=== PATIENT | male | born 1940 | race Caucasian/White ===

== ENCOUNTER → 2017-09-13 09:08 | Outpatient (CLI) | payer MEDICARE, SELFPAY ==
[2017-09-13 10:18] LABS: Alanine Aminotransferase 24 U/L (12-78); Albumin Level 4.4 gm/dL (3.4-5.0); Albumin/Globulin Ratio 1.6 (1.1-1.8); Alkaline Phosphatase 68 U/L (46-116); Anion Gap 15.3 mEq/L (5-15); Aspartate Amino Transferase 17 U/L (15-37); Bilirubin,Total 0.4 mg/dL (0.2-1.0); Blood Urea Nitrogen 27 mg/dL (7-18); Calcium 9.4 mg/dL (8.5-10.1); Carbon Dioxide 24 mmol/L (21.0-32.0); Chloride 103 mmol/L (98-107); Chol/HDL Ratio 4.8 (1-3.5); Cholesterol 184 mg/dL (140-200); Creatinine,Serum 1.41 mg/dL (0.70-1.30); Estimated Glomerular Filt Rate 48 ml/min (>60); GFR (African American) 59 ML/MIN (>60); Globulin 2.8 gm/dl (1.3-3.2); Glucose 143 mg/dL (74-106); HDL Cholesterol 38 mg/dL (27-67); LDL Cholesterol 96 mg/dL (0-130); Potassium 5.3 mmoL/L (3.5-5.1); Sodium 137 mmol/L (136-145); Total Protein,Serum 7.2 gm/dL (6.4-8.2); Triglycerides 248 mg/dL (30-200); VLDL Cholesterol 50 mg/dL (0-40)
== END ==
PROVIDERS: PCP Family Medicine; Visit Provider Family Medicine
DX: E11.9 Type 2 diabetes mellitus without complications (principal); I10 Essential (primary) hypertension; E78.00 Pure hypercholesterolemia, unspecified
CPT/HCPCS: 36415; 80053; 80061; 83036

== ENCOUNTER → 2018-03-08 08:12 | Outpatient (CLI) | payer MEDICARE, SELFPAY ==
[2018-03-08 08:48] LABS: Basophils % 0.5 % (0.1-2.0); Eosinophils # 0.5 K/mm3 (0.0-0.4); Eosinophils % 7.5 % (0.1-12.0); Hematocrit 42.9 % (42.0-52.0); Hemoglobin 13.5 g/dL (14.1-18.0); Lymphocytes # 2.5 K/mm3 (0.7-4.5); Lymphocytes % 40.4 K/mm3 (10-50); Mean Corpuscular HGB Conc 31.5 g/dL (31.8-35.4); Mean Corpuscular Hemoglobin 29.8 pg (27.0-31.2); Mean Corpuscular Volume 94.6 fl (80-94); Mean Platelet Volume 7.9 fl (7.4-10.4); Monocytes # 0.6 K/mm3 (0.1-1.0); Monocytes % 8.8 % (1.7-9.3); Neutrophils # 2.7 K/mm3 (1.8-7.8); Neutrophils % 42.8 % (37.0-80.0); Platelet Count 201 K/mm3 (142-424); Red Blood Count 4.54 M/mm3 (4.60-6.20); Red Cell Distribution Width 13.4 % (11.5-17.5); White Blood Count 6.2 K/mm3 (4.8-10.8)
[2018-03-08 08:56] LABS: Creatinine,Urine Random 99 mg/dL (20-320)
[2018-03-08 09:09] LABS: Hemoglobin A1C 7.1 % (0.0-7.0)
[2018-03-08 10:03] LABS: Alanine Aminotransferase 24 U/L (12-78); Albumin/Globulin Ratio 1.4 (1.1-1.8); Alkaline Phosphatase 74 U/L (46-116); Anion Gap 14.5 mEq/L (5-15); Aspartate Amino Transferase 16 U/L (15-37); Bilirubin,Total 0.4 mg/dL (0.2-1.0); Blood Urea Nitrogen 32 mg/dL (7-18); Carbon Dioxide 24 mmol/L (21.0-32.0); Chloride 106 mmol/L (98-107); Chol/HDL Ratio 4.3 (1-3.5); Cholesterol 145 mg/dL (140-200); Creatinine,Serum 1.52 mg/dL (0.70-1.30); Estimated Glomerular Filt Rate 44 ml/min (>60); GFR (African American) 54 ML/MIN (>60); Globulin 2.9 gm/dl (1.3-3.2); Glucose 173 mg/dL (74-106); HDL Cholesterol 34 mg/dL (27-67); LDL Cholesterol 83 mg/dL (0-130); Potassium 5.5 mmoL/L (3.5-5.1); Prostate Specific Ag Screen 1.4 ng/mL (0.0-4.0); Sodium 139 mmol/L (136-145); Total Protein,Serum 6.9 gm/dL (6.4-8.2); Triglycerides 138 mg/dL (30-200); VLDL Cholesterol 28 mg/dL (0-40)
[2018-03-09 18:30] LABS: Microalbumin, Urine <3.0 ug/mL (Not Estab.)
== END ==
PROVIDERS: Visit Provider Family Medicine
DX: Z12.5 Encounter for screening for malignant neoplasm of prostate (principal); I10 Essential (primary) hypertension; E11.9 Type 2 diabetes mellitus without complications; E78.5 Hyperlipidemia, unspecified
CPT/HCPCS: 36415; 80053; 80061; 82043; 82570; 83036; 85025; G0103

== ENCOUNTER → 2018-09-12 08:49 | Outpatient (CLI) | payer MEDICARE, SELFPAY ==
[2018-09-12 09:41] LABS: Hemoglobin A1C 8.5 % (0.0-7.0)
[2018-09-12 09:56] LABS: Alanine Aminotransferase 32 U/L (12-78); Albumin Level 4.2 gm/dL (3.4-5.0); Albumin/Globulin Ratio 1.4 (1.1-1.8); Alkaline Phosphatase 72 U/L (46-116); Anion Gap 16.3 mEq/L (5-15); Aspartate Amino Transferase 22 U/L (15-37); Bilirubin,Total 0.4 mg/dL (0.2-1.0); Blood Urea Nitrogen 27 mg/dL (7-18); Calcium 9.6 mg/dL (8.5-10.1); Carbon Dioxide 23 mmol/L (21.0-32.0); Chloride 104 mmol/L (98-107); Chol/HDL Ratio 5.5 (1-3.5); Cholesterol 191 mg/dL (140-200); Creatinine,Serum 1.32 mg/dL (0.70-1.30); Estimated Glomerular Filt Rate 52 ml/min (>60); GFR (African American) 63 ML/MIN (>60); Glucose 188 mg/dL (74-106); HDL Cholesterol 35 mg/dL (27-67); LDL Cholesterol 103 mg/dL (0-130); Potassium 5.3 mmoL/L (3.5-5.1); Sodium 138 mmol/L (136-145); Total Protein,Serum 7.2 gm/dL (6.4-8.2); Triglycerides 266 mg/dL (30-200); VLDL Cholesterol 53 mg/dL (0-40)
== END ==
PROVIDERS: Visit Provider Family Medicine
DX: E78.5 Hyperlipidemia, unspecified (principal); E11.9 Type 2 diabetes mellitus without complications; I10 Essential (primary) hypertension
CPT/HCPCS: 36415; 80053; 80061; 83036

== ENCOUNTER → 2019-03-06 09:03 | Outpatient (CLI) | payer MEDICARE, SELFPAY ==
[2019-03-06 10:06] LABS: Hemoglobin A1C 7.7 % (0.0-7.0)
[2019-03-06 11:45] LABS: Alanine Aminotransferase 25 U/L (12-78); Albumin/Globulin Ratio 1.4 (1.1-1.8); Alkaline Phosphatase 73 U/L (46-116); Anion Gap 18.7 mEq/L (5-15); Aspartate Amino Transferase 20 U/L (15-37); Bilirubin,Total 0.3 mg/dL (0.2-1.0); Blood Urea Nitrogen 34 mg/dL (7-18); Calcium 9.7 mg/dL (8.5-10.1); Carbon Dioxide 20 mmol/L (21.0-32.0); Chloride 108 mmol/L (98-107); Chol/HDL Ratio 4.9 (1-3.5); Cholesterol 167 mg/dL (140-200); Creatinine,Serum 1.65 mg/dL (0.70-1.30); Estimated Glomerular Filt Rate 40 ml/min (>60); GFR (African American) 49 ML/MIN (>60); Globulin 2.9 gm/dl (1.3-3.2); Glucose 73 mg/dL (74-106); HDL Cholesterol 34 mg/dL (27-67); LDL Cholesterol 103 mg/dL (0-130); Potassium 5.7 mmoL/L (3.5-5.1); Sodium 141 mmol/L (136-145); Total Protein,Serum 6.9 gm/dL (6.4-8.2); Triglycerides 152 mg/dL (30-200); VLDL Cholesterol 30 mg/dL (0-40)
== END ==
PROVIDERS: Visit Provider Family Medicine
DX: E11.9 Type 2 diabetes mellitus without complications (principal); E78.5 Hyperlipidemia, unspecified; I10 Essential (primary) hypertension
CPT/HCPCS: 36415; 80053; 80061; 83036

== ENCOUNTER → 2019-08-29 08:58 | Outpatient (CLI) | payer MEDICARE, SELFPAY ==
[2019-08-29 09:36] LABS: Hemoglobin A1C 7.8 % (0.0-7.0)
[2019-08-29 09:57] LABS: Alanine Aminotransferase 28 U/L (12-78); Albumin/Globulin Ratio 1.3 (1.1-1.8); Alkaline Phosphatase 71 U/L (46-116); Aspartate Amino Transferase 19 U/L (15-37); Bilirubin,Total 0.4 mg/dL (0.2-1.0); Blood Urea Nitrogen 24 mg/dL (7-18); Calcium 9.3 mg/dL (8.5-10.1); Carbon Dioxide 26 mmol/L (21.0-32.0); Chloride 103 mmol/L (98-107); Chol/HDL Ratio 4.3 (1-3.5); Cholesterol 177 mg/dL (140-200); Creatinine,Serum 1.16 mg/dL (0.70-1.30); Estimated Glomerular Filt Rate 60 ml/min (>60); GFR (African American) 73 ML/MIN (>60); Glucose 144 mg/dL (74-106); HDL Cholesterol 41 mg/dL (27-67); LDL Cholesterol 98 mg/dL (0-130); Sodium 139 mmol/L (136-145); Triglycerides 190 mg/dL (30-200); VLDL Cholesterol 38 mg/dL (0-40)
[2019-09-01 05:08] LABS: Microalbumin, Urine 5.2 ug/mL (Not Estab.)
== END ==
PROVIDERS: Visit Provider Family Medicine
DX: E78.5 Hyperlipidemia, unspecified (principal); E11.9 Type 2 diabetes mellitus without complications; I10 Essential (primary) hypertension
CPT/HCPCS: 36415; 80053; 80061; 82043; 82570; 83036

== ENCOUNTER → 2020-02-26 08:40 | Outpatient (CLI) | payer MEDICARE, SELFPAY ==
[2020-02-26 10:01] LABS: Alanine Aminotransferase 16 U/L (12-78); Albumin Level 4.7 g/dl (3.5-5.0); Albumin/Globulin Ratio 1.9 (1.1-1.8); Alkaline Phosphatase 100 U/L (38-126); Aspartate Amino Transferase 28 U/L (17-59); Bilirubin,Total 0.5 mg/dl (0.2-1.3); Blood Urea Nitrogen 23 mg/dl (9-20); Calcium 10.1 mg/dl (8.4-10.2); Carbon Dioxide 25 mmol/L (22.0-30.0); Chloride 101 mmol/L (98-107); Chol/HDL Ratio 3.3 (1-3.5); Cholesterol 153 mg/dl (140-200); Estimated Glomerular Filt Rate 64 ml/min (>60); GFR (African American) 78 ML/MIN (>60); Globulin 2.5 g/dL (1.3-3.2); Glucose 157 mg/dl (74-100); HDL Cholesterol 46 mg/dl (40-60); Sodium 136 mmol/L (136-145); Total Protein,Serum 7.2 g/dl (6.3-8.2); Triglycerides 158 mg/dl (30-150); VLDL Cholesterol 32 mg/dL (0-40)
[2020-02-26 10:11] LABS: Direct LDL Cholesterol 91.42 mg/dL (100-129)
[2020-02-26 10:39] LABS: Creatinine,Urine Random 59 mg/dL (Not Estab.)
[2020-02-26 10:42] LABS: Microalbumin/Creatinine Ratio 22.2
[2020-02-26 10:53] LABS: Hemoglobin A1C 7.7 % (4.0-6.0)
== END ==
PROVIDERS: Visit Provider Family Medicine
DX: E11.9 Type 2 diabetes mellitus without complications (principal); E78.5 Hyperlipidemia, unspecified; I10 Essential (primary) hypertension
CPT/HCPCS: 36415; 80053; 80061; 82043; 82570; 83036

== ENCOUNTER → 2020-09-08 09:47 | Outpatient (CLI) | payer MEDICARE, SELFPAY ==
[2020-09-08 12:51] LABS: Alanine Aminotransferase 28 U/L (12-78); Albumin Level 4.7 g/dl (3.5-5.0); Albumin/Globulin Ratio 1.7 (1.1-1.8); Alkaline Phosphatase 95 U/L (38-126); Anion Gap 16.3 mEq/L (5-15); Aspartate Amino Transferase 29 U/L (17-59); Bilirubin,Total 0.6 mg/dl (0.2-1.3); Blood Urea Nitrogen 25 mg/dl (9-20); Calcium 10.3 mg/dl (8.4-10.2); Carbon Dioxide 25 mmol/L (22.0-30.0); Chloride 100 mmol/L (98-107); Chol/HDL Ratio 4.7 (1-3.5); Cholesterol 177 mg/dl (140-200); Estimated Glomerular Filt Rate 64 ml/min (>60); GFR (African American) 78 ML/MIN (>60); Globulin 2.7 g/dL (1.3-3.2); Glucose 179 mg/dl (74-100); HDL Cholesterol 38 mg/dl (40-60); Potassium 5.3 mmoL/L (3.5-5.1); Sodium 136 mmol/L (136-145); Total Protein,Serum 7.4 g/dl (6.3-8.2); Triglycerides 196 mg/dl (30-150); VLDL Cholesterol 39 mg/dL (0-40)
[2020-09-08 13:39] LABS: Hemoglobin A1C 7.6 % (4.0-6.0)
== END ==
PROVIDERS: Visit Provider Family Medicine
DX: E11.9 Type 2 diabetes mellitus without complications (principal); E78.5 Hyperlipidemia, unspecified
CPT/HCPCS: 36415; 80053; 80061; 83036

== ENCOUNTER → 2021-01-20 14:12 | Outpatient (CLI) | payer MEDICARE, SELFPAY ==
--- NOTE | 2021-01-20 14:17 | XR_ITS ---
PROCEDURE: XR CHEST 2V CLINICAL HISTORY: DYPSNEA,FATIGUE COMPARISON: No exams were available for comparison FINDINGS: The cardiomediastinal silhouette and pulmonary vascularity are within normal limits. The lungs are clear without infiltrates, suspicious nodules, or pleural effusions. Vascular calcification is noted. Multilevel degenerative changes of the visualized thoracic spine and bilateral shoulder joint osteoarthritis. IMPRESSION: No acute findings. Dictated by: Marti Chin 01/20/2021 16:01 Marti Chin in [place] 01/20/2021 16:01
[2021-01-20 15:00] LABS: Basophils % 0.5 % (0.1-2.0); Eosinophils # 0.3 K/mm3 (0.0-0.4); Eosinophils % 3.2 % (0.1-12.0); Hemoglobin 13.6 g/dL (14.1-18.0); Lymphocytes % 36.3 % (10-50); Mean Corpuscular HGB Conc 32.5 g/dL (31.8-35.4); Mean Corpuscular Hemoglobin 31.1 pg (27.0-31.2); Mean Corpuscular Volume 95.7 fl (80-94); Mean Platelet Volume 7.9 fl (7.4-10.4); Monocytes # 0.5 K/mm3 (0.1-1.0); Monocytes % 6.3 % (1.7-9.3); Neutrophils # 4.4 K/mm3 (1.8-7.8); Neutrophils % 53.7 % (37.0-80.0); Platelet Count 209 K/mm3 (142-424); Red Blood Count 4.39 M/mm3 (4.60-6.20); White Blood Count 8.2 K/mm3 (4.8-10.8)
[2021-01-20 15:20] LABS: Iron 101 ug/dL (49-181)
[2021-01-20 15:37] LABS: 25-OH Vitamin D, Total 52.3 ng/mL (30-100)
[2021-01-20 15:53] LABS: Thyroid Stimulating Hormone 0.87 uIU/mL (0.465-4.68)
[2021-01-20 16:28] LABS: Vitamin B12 230 pg/mL (239-931)
== END ==
PROVIDERS: PCP Family Medicine; Visit Provider Family Medicine
DX: R06.00 Dyspnea, unspecified (principal); R53.83 Other fatigue; E53.8 Deficiency of other specified B group vitamins
CPT/HCPCS: 36415; 71046; 82306; 82607; 82746; 83540; 84443; 85025

== ENCOUNTER → 2021-03-10 08:41 | Outpatient (CLI) | payer MEDICARE, SELFPAY ==
[2021-03-10 09:12] LABS: Chloride 104 mmol/L (98-107); Potassium 5.5 mmoL/L (3.5-5.1); Sodium 138 mmol/L (136-145)
[2021-03-10 09:14] LABS: Blood Urea Nitrogen 27 mg/dl (9-20); Estimated Glomerular Filt Rate 58 ml/min (>60); GFR (African American) 70 ML/MIN (>60)
[2021-03-10 09:15] LABS: Alanine Aminotransferase 20 U/L (12-78); Albumin Level 4.7 g/dl (3.5-5.0); Albumin/Globulin Ratio 1.7 (1.1-1.8); Alkaline Phosphatase 94 U/L (38-126); Anion Gap 16.5 mEq/L (5-15); Aspartate Amino Transferase 32 U/L (17-59); Bilirubin,Total 0.5 mg/dl (0.2-1.3); Calcium 9.8 mg/dl (8.4-10.2); Carbon Dioxide 23 mmol/L (22.0-30.0); Chol/HDL Ratio 4.8 (1-3.5); Cholesterol 159 mg/dl (140-200); Globulin 2.7 g/dL (1.3-3.2); Glucose 206 mg/dl (74-100); HDL Cholesterol 33 mg/dl (40-60); Total Protein,Serum 7.4 g/dl (6.3-8.2); Triglycerides 206 mg/dl (30-150); VLDL Cholesterol 41 mg/dL (0-40)
== END ==
PROVIDERS: Visit Provider Family Medicine
DX: I10 Essential (primary) hypertension (principal); E11.9 Type 2 diabetes mellitus without complications; E78.5 Hyperlipidemia, unspecified
CPT/HCPCS: 36415; 80053; 80061; 83036

== ENCOUNTER → 2021-07-11 15:18 | Outpatient (POV) | payer MEDICARE, SELFPAY | PROVIDERS: Visit Provider Dermatology | DX: Z00.00 Encounter for general adult medical examination without abnormal findings (principal) ==

== ENCOUNTER 2021-08-23 16:12 | Observation (INO) | payer MEDICARE, SELFPAY ==
[2021-08-23 16:33] VITALS: BP 135/68; PULSE 101; RESP 14; TEMP 36.5; O2SAT 98; BMI 27.1
--- NOTE | 2021-08-23 16:52 | HMH.HP ---
*Admission Date: 08/23/21 *Chief complaint: left ear pain and face swelling *History of present illness: Mr. Alegria is an 81-year-old male who has had chronic otitis externa of the left ear. He has now seen Dr. Dimas on two different occasions, one on 08/01 and also today. He was following up and had stopped his Ciprodex drops approximately 1 week ago. He felt like his ear was getting worse and he had noticed some swelling on the left side of his face starting this morning. On exam he had auricular tenderness on the left and severe swelling of the left ear canal with debris. His TM appeared normal once the debris was cleaned. A culture was obtained, but Dr. 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 A wick was placed and he wanted the patient admitted to the hospital and started on Ciprodex otic drops along with cefepime pending cultures. He felt steroids would help, but this would need to balance with his diabetes management. He also wanted an MRI of the temporal bone with and without contrast as well as a CT of the temporal bone without contrast. [facility] History I have reviewed the patient's past medical history: Yes Medical History: Reports:: Atherosclerotic Heart Disease, Diabetes Mellitus Type 2, Hyperlipidemia, Hypertension, Kidney Stones, Renal Insufficiency *Have you ever received a pneumonia vaccine?: No *Have you received a flu vaccine this season?: Yes Other Medical History: Reports: Arthritis Other Surgeries: Yes: Coronary Stent, Other Amputation: No Fractures: No - *Social History Smoking Status: Never smoker Alcohol Intake: never Substance Use Type: denies use *Occupational Status:: retired Household Members: spouse *Travel in the last 8 weeks: None Family Hx:: Coronary Artery Disease, Diabetes, Hypertension, Kidney Disease Review of Systems - Constitutional Denies chills, Denies fever(s), Denies weakness - Eyes Denies blurry vision, Denies double vision - ENT Reports ear pain (left), Reports facial pain (left side), Denies nasal congestion, Denies sore throat - *Cardiovascular Denies chest pain, Denies shortness of breath - *Respiratory Denies cough, Denies shortness of breath - *Gastrointestinal Denies abdominal pain, Denies loose stools, Denies nausea, Denies vomiting - *Genitourinary Denies difficulty urinating, Denies painful urination - *Musculoskeletal Reports joint pain (left knee) - *Neurologic Reports localized weakness (left side of face), Reports headache(s), Denies dizziness Meds Home Medications Medication Instructions Recorded Confirmed Type aspirin 81 mg capsule 81 mg PO DAILY 08/01/21 08/23/21 History canagliflozin 300 mg tablet 300 mg PO DAILY 08/01/21 08/23/21 History celecoxib 200 mg capsule 200 mg PO DAILY 08/01/21 08/23/21 History gemfibrozil 600 mg tablet 600 mg PO DAILY 08/01/21 08/23/21 History glimepiride 4 mg tablet 4 mg PO DAILY 08/01/21 08/23/21 History glucosam 750 mg-chondroi 100 tab PO 08/01/21 08/23/21 History mg-hyalur 1.65 mg-CF borate 108 mg tablet glucosamine-chondroitin 250 mg-200 2 tab PO QPC 08/01/21 08/23/21 History mg tablet krill cap PO 08/01/21 08/23/21 History gkc-ih2-wzj-eob-sh1-iic-astax 1,500 mg-165 mg-67.5 mg capsule lisinopril 20 mg tablet 20 mg PO DAILY 08/01/21 08/23/21 History pravastatin 40 mg tablet 40 mg PO DAILY 08/01/21 08/23/21 History sitagliptin 50 mg-metformin 1,000 1 tab PO BID 08/01/21 08/23/21 History mg tablet Allergies Allergy/AdvReac Type Severity Reaction Status Date / Time dapagliflozin [From [facility]] Allergy Mild Dizziness Verified 08/23/21 14:38 From Penicillin V Potassium Allergy Unknown Uncoded 08/01/21 11:34 Penicillin Allergy Unknown Uncoded 08/01/21 11:34 Exam Vital signs and Labs for Last 24 Hours: Temp Pulse Resp BP Pulse Ox 97.7 F 101 H 14 135/68 98 08/23/21 16:33 08/23/21 16:33 08/23/21 16:33 08/23/21 16:3
[2021-08-23 17:38] LABS: Coronavirus 19, PCR Not Detected (NotDetected); Influenza A, PCR Not Detected (NotDetected); Influenza B, PCR Not Detected (NotDetected)
[2021-08-23 18:05] LABS: Basophils # 0.1 K/mm3 (0-0.2); Basophils % 0.5 % (0.1-2.0); Eosinophils # 0.2 K/mm3 (0.0-0.4); Eosinophils % 2.1 % (0.1-12.0); Hematocrit 46.6 % (42.0-52.0); Hemoglobin 15.8 g/dL (14.1-18.0); Lymphocytes # 2.6 K/mm3 (0.7-4.5); Lymphocytes % 23.7 % (10-50); Mean Corpuscular HGB Conc 33.8 g/dL (31.8-35.4); Mean Corpuscular Hemoglobin 30.9 pg (27.0-31.2); Mean Corpuscular Volume 91.3 fl (80-94); Mean Platelet Volume 7.6 fl (7.4-10.4); Monocytes # 0.6 K/mm3 (0.1-1.0); Monocytes % 5.9 % (1.7-9.3); Neutrophils # 7.3 K/mm3 (1.8-7.8); Neutrophils % 67.8 % (37.0-80.0); Platelet Count 344 K/mm3 (142-424); Red Cell Distribution Width 13.1 % (11.5-17.5); White Blood Count 10.8 K/mm3 (4.8-10.8)
[2021-08-23 18:32] LABS: Chloride 99 mmol/L (98-107); Potassium 4.6 mmoL/L (3.5-5.1); Sodium 140 mmol/L (136-145)
[2021-08-23 18:34] LABS: Alanine Aminotransferase 16 U/L (12-78); Alkaline Phosphatase 136 U/L (38-126); Aspartate Amino Transferase 23 U/L (17-59); Bilirubin,Total 0.5 mg/dl (0.2-1.3); Blood Urea Nitrogen 19 mg/dl (9-20); Creatinine Clearance Estimated 60 mL/min (50-200); Estimated Glomerular Filt Rate 64 ml/min (>60); GFR (African American) 77 ML/MIN (>60)
[2021-08-23 18:35] LABS: Albumin Level 4.8 g/dl (3.5-5.0); Albumin/Globulin Ratio 1.4 (1.1-1.8); Anion Gap 18.6 mEq/L (5-15); Calcium 10.6 mg/dl (8.4-10.2); Carbon Dioxide 27 mmol/L (22.0-30.0); Globulin 3.5 g/dL (1.3-3.2); Glucose 276 mg/dl (74-100); Total Protein,Serum 8.3 g/dl (6.3-8.2)
[2021-08-23 19:50] VITALS: BP 111/63; PULSE 93; RESP 16; TEMP 36.7; O2SAT 99
[2021-08-23 20:00] VITALS: O2SAT 99
[2021-08-23 21:24] LABS: POC Glucose,Bedside 341 (70-110)
--- NOTE | 2021-08-23 22:22 | P.CONPHA_ITS ---
[facility] Pharmacy VTE Monitoring - Patient Demographics Admission date: 08/23/21 Report Date: 08/23/21 Time: 22:22 Allergies/Adverse Reactions: Patient Allergies dapagliflozin [From Farxiga] Allergy (Mild, Verified 08/23/21 14:38) Dizziness From Penicillin V Potassium Allergy (Unknown, Uncoded 08/01/21 11:34) Penicillin Allergy (Unknown, Uncoded 08/01/21 11:34) Height: 1.75 m Weight: 83.206 kg Patient Problems: Current Active Problems Malignant otitis externa of left ear (Acute) Facial nerve palsy (Acute) Type 2 diabetes mellitus (Chronic) Hypertension (Chronic) Hyperlipidemia (Chronic) ASCVD (arteriosclerotic cardiovascular disease) (Chronic) Chronic renal insufficiency (Chronic) - VTE Risk Labs: VTE Related Lab Results Hgb 15.8 g/dL (14.1-18.0) 08/23/21 17:27 Hct 46.6 % (42.0-52.0) 08/23/21 17:27 Plt Count 344 K/mm3 (142-424) 08/23/21 17:27 BUN 19 mg/dl (9-20) 08/23/21 17:27 Creatinine 1.10 mg/dl (0.66-1.25) 08/23/21 17:27 Estimated Creat Clear 60 mL/min (50-200) 08/23/21 17:27 Was VTE Risk Assessment Performed: Yes VTE Score: 2 Clinical Trial Participant: No - Prophylaxis VTE Prophylaxis Ordered?: Yes Types of VTE Prophylaxis: TEDS Knee High
--- NOTE | 2021-08-23 22:32 | HMH.PHAINT ---
home medication list verified using list from [facility]
[2021-08-23 23:30] LABS: Coronavirus 19 IgG Antibody Positive (Negative); Coronavirus 19 IgM Antibody Negative (Negative)
[2021-08-24 04:00] VITALS: BP 122/70; PULSE 99; RESP 17; TEMP 36.7; O2SAT 96
[2021-08-24 05:51] VITALS: BMI 26.1
[2021-08-24 06:10] LABS: POC Glucose,Bedside 152 (70-110)
[2021-08-24 07:47] VITALS: BP 112/64; PULSE 102; RESP 16; TEMP 36.8; O2SAT 96
[2021-08-24 08:00] VITALS: PULSE 102; RESP 16; O2SAT 96
--- NOTE | 2021-08-24 08:14 | CT_ITS ---
PROCEDURE INFORMATION: Exam: CT Temporal Bones Without Contrast. Exam date and time: 08/24/2021 8:14 AM Age: 81 years old Clinical indication: Other: Left ear pain; Additional info: Malignant external otitis with facial nerve palsy TECHNIQUE: Imaging protocol: Computed tomography images of the temporal bones without contrast. Radiation optimization: All CT scans at this facility use at least one of these dose optimization techniques: automated exposure control; mA and/or kV adjustment per patient size (includes targeted exams where dose is matched to clinical indication); or iterative reconstruction. COMPARISON: CR (PA, SKULL, [employer]) 06/16/2015 8:48 AM FINDINGS: Right inner ear: Normal. Right ossicles and middle ear: Normal. The middle ear ossicles are intact. Right external auditory canal: Normal. Right facial nerve canal: Normal. Right jugular foramen: No jugular dehiscence. Right carotid canal: No aberrant carotid canal. Right mastoid air cells: Normal. No mastoid effusions. Left inner ear: Normal. Left ossicles and middle ear: Normal. The middle ear ossicles are intact. Left external auditory canal: Soft tissue thickening along the left external auditory canal consistent with otitis externa. There is effacement of the meatus. The bony EAC appears intact without erosion. Contiguous tissue density extends to the immediately adjacent mastoid temporal bone where there is loss of cortical bone in keeping with the provided history of malignant otitis externa. This is seen for example on coronal image 48 of series 601, image 44 of series 3; essentially posterior and inferior to the bony EAC. More inferiorly, sclerotic appearance of the mastoid tip which demonstrates cortical irregularity concerning for osteomyelitis, axial image 51 series 3, sagittal image 52 series 602. There is adjacent soft tissue induration. This soft tissue edema is in the region of the extracranial left cranial nerve 7 (following exit from the skull base, just below the level of the stylomastoid foramen). Left facial nerve canal: Normal. Left jugular foramen: No jugular dehiscence. Left carotid canal: No aberrant carotid canal. Left mastoid air cells: There is left mastoid effusion consistent with mastoiditis. Paranasal sinuses: Retention cyst or polyp in the right maxillary sinus. Lymph nodes: Mildly enlarged left periauricular and intraparotid lymph nodes, likely reactive. Soft tissues: Diffuse left periauricular soft tissue swelling. No drainable soft tissue abscess identified. IMPRESSION: 1. Findings considered consistent with the provided history malignant otitis externa. 2. 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 3. Adjacent to the mastoid tip there soft tissue induration in the region of the extracranial left cranial nerve 7. 4. There is left mastoiditis.
--- NOTE | 2021-08-24 08:17 | HMH.ACPN2 ---
<Carina Younger - Last Filed: 08/24/21 08:17> Internal Medicine - PN: Subj *Date: 08/24/21 *Time: 08:17 Interval history: Patient is feeling better today. He feels like his ear pain and facial pain have improved slightly. He was able to sleep last night and did eat breakfast this morning. Exam Vital signs and Labs for Last 24 Hours: Temp Pulse Resp BP Pulse Ox 98.2 F 102 H 16 112/64 96 08/24/21 07:47 08/24/21 07:47 08/24/21 07:47 08/24/21 07:47 08/24/21 07:47 Laboratory Results - last 24 hr 08/23/21 17:27: WBC 10.8, RBC 5.10, Hgb 15.8, Hct 46.6, MCV 91.3, MCH 30.9, MCHC 33.8, RDW 13.1, Plt Count 344, MPV 7.6, Neut % (Auto) 67.8, Lymph % (Auto) 23.7, [place] % (Auto) 5.9, Eos % (Auto) 2.1, Baso % (Auto) 0.5, Neut # (Auto) 7.3, Lymph # (Auto) 2.6, [place] # (Auto) 0.6, Eos # (Auto) 0.2, Baso # (Auto) 0.1 08/23/21 17:27: Sodium 140, Potassium 4.6, Chloride 99, Carbon Dioxide 27, Anion Gap 18.6 H, BUN 19, Creatinine 1.10, Estimated Creat Clear 60, Estimated GFR 64, Est GFR ( Amer) 77, Glucose 276 H, Calcium 10.6 H, Total Bilirubin 0.5, AST 23, ALT 16, Alkaline Phosphatase 136 H, Total Protein 8.3 H, Albumin 4.8, Globulin 3.5 H, Albumin/Globulin Ratio 1.4 08/23/21 17:27: SARS-CoV-2 (PCR) Not detected, Influenza A Untype (PCR) Not detected, Influenza Type B (PCR) Not detected 08/23/21 17:27: SARS-CoV-2 IgG Ab (Rapid) Positive A, SARS-CoV-2 IgM Ab (Rapid) Negative 08/23/21 20:24: POC Glucose 341 H* 08/24/21 04:47: POC Glucose 152 H I & O for Last 24 hours: Intake & Output 08/21/21 08/22/21 08/23/21 08/24/21 11:59 11:59 11:59 11:59 Intake Total 480 / 480 Balance 480 / 480 Weight 176 lb 8 oz - Constitutional no acute distress - *Routine Respiratory Exam Present: CTA bilaterally - *Routine Cardiovascular Exam Present: RRR - *Routine Abdominal Exam Present: soft, normoactive bowel sounds. Absent: tenderness - *Routine Extremities Exam Absent: cyanosis, clubbing, edema - *Routine Skin Exam Present: warm. Absent: rash Comments: Still with some erythema and edema on the left side of the face near the ear, it has improved since yesterday - *Routine Neurological Exam Present: alert, oriented X3 Assessment and Plan (1) Malignant otitis externa of left ear Status: Acute Category: Medical Code(s): H60.22 - Malignant otitis externa, left ear (2) Facial nerve palsy Status: Acute Category: Medical Code(s): G51.0 - Tejada's palsy (3) Type 2 diabetes mellitus Status: Chronic Category: Medical Code(s): E11.9 - Type 2 diabetes mellitus without complications (4) Hypertension Status: Chronic Category: Medical Code(s): I10 - Essential (primary) hypertension (5) Hyperlipidemia Status: Chronic Category: Medical Code(s): E78.5 - Hyperlipidemia, unspecified (6) ASCVD (arteriosclerotic cardiovascular disease) Status: Chronic Category: Medical Code(s): I25.10 - Atherosclerotic heart disease of [place] coronary artery without angina pectoris (7) Chronic renal insufficiency Status: Chronic Category: Medical Code(s): N18.9 - Chronic kidney disease, unspecified - Assessment and plan all Dx Assessment and Plan for all problems:: MRI has been ordered. Will continue IV antibiotics and discuss further care with Dr. Oshea. <Gaurang Oshea - Last Filed: 08/24/21 13:30> Internal Medicine - PN: Subj *Date: 08/24/21 *Time: 13:29 Exam Vital signs and Labs for Last 24 Hours: Temp Pulse Resp BP Pulse Ox 98.2 F 102 H 16 112/64 96 08/24/21 07:47 08/24/21 08:00 08/24/21 08:00 08/24/21 07:47 08/24/21 08:00 Laboratory Results - last 24 hr 08/23/21 17:27: WBC 10.8, RBC 5.10, Hgb 15.8, Hct 46.6, MCV 91.3, MCH 30.9, MCHC 33.8, RDW 13.1, Plt Count 344, MPV 7.6, Neut % (Auto) 67.8, Lymph % (Auto) 23.7, [place] % (Auto) 5.9, Eos % (Auto) 2.1, Baso % (Auto) 0.5, Neut # (Auto) 7.3, Lymph # (Auto) 2.6, [place] # (Auto) 0.6, Eos # (Auto)
--- NOTE | 2021-08-24 10:42 | MR_ITS ---
PROCEDURE INFORMATION: Exam: MR Head Without and With Contrast Exam date and time: 08/24/2021 10:42 AM Age: 81 years old Clinical indication: Pain; Headache; Additional info: Malignant otitis exenda left. Malignant otitis external left temporal bone. 16ml. Lot #: [id number] exp: 03/31. Bun: 19, creat: 1.1 gfr: 64. Prior CT temporal bones 08/24/2021. TECHNIQUE: Imaging protocol: MR of the head without and with intravenous contrast. Contrast material: PROHANCE; Contrast volume: 16 ml; Contrast route: IV; COMPARISON: CT TEMPORAL BONE WITHOUT 08/24/2021 9:10 AM FINDINGS: Brain: No acute infarct or encephalitis identified on the diffusion-weighted imaging. The brain demonstrates generalized volume loss. No evidence of brain parenchymal edema or intracranial mass effect. The T2 weighted imaging demonstrates foci of increased signal intensity in the deep and subcortical white matter as well as clark most likely representing chronic small vessel ischemic change. There is a focal, chronic lacunar infarct in the right juárez radiata. No enhancing intracranial pathology. No evidence of dural enhancement, in particular. Cerebral ventricles: The ventricles are enlarged in keeping with volume loss. Bones/joints: The left mastoid tip appears hypointense consistent with sclerosis. Paranasal sinuses: Retention cyst or polyp in the right maxillary sinus. Mild ethmoid mucosal thickening. Mastoid air cells: Left mastoid effusion consistent with mastoiditis. Peripheral mastoid bony erosion is better appreciated on the prior CT study. Orbital cavity: Unremarkable. Soft tissues: Left periauricular and left EAC soft tissue edema with enhancement is again demonstrated in keeping with otitis externa. No soft tissue fluid collection seen. IMPRESSION: 1. No evidence of meningitis or cerebritis. 2. Findings consistent with left otitis externa and mastoiditis.
[2021-08-24 10:58] VITALS: BMI 26.1
[2021-08-24 11:00] LABS: POC Glucose,Bedside 268 (70-110)
[2021-08-24 16:00] VITALS: BP 108/59; PULSE 85; RESP 16; TEMP 36.8; O2SAT 96
--- NOTE | 2021-08-24 17:01 | PC.NURSE ---
Pt has been pleasant and cooperative this shift. A&O X4. Pt is on room air with sats. >90%. Lungs CTA. Erythema/Edema noted to LT ear. Abdomen is flat, soft, and non-tender. Pt ambulates to/from the bathroom and throughout the room independently. Urine is clear and yellow. No BM thus far today. Appetite is good and pt eats the majority of every meal. FSBS results have been 268 and 331. 20 G peripheral IV in the RT forearm is patent and SL. VSS. Call light within reach. Will continue to monitor.
[2021-08-24 17:09] LABS: POC Glucose,Bedside 331 (70-110)
[2021-08-24 20:00] VITALS: BP 110/62; PULSE 84; RESP 17; TEMP 36.9; O2SAT 94
[2021-08-24 21:53] LABS: POC Glucose,Bedside 194 (70-110)
[2021-08-25 04:00] VITALS: BP 113/65; PULSE 67; RESP 16; TEMP 36.6; O2SAT 95
[2021-08-25 05:21] VITALS: BMI 26.4
[2021-08-25 06:37] LABS: POC Glucose,Bedside 243 (70-110)
[2021-08-25 08:00] VITALS: BP 132/56; PULSE 95; RESP 18; TEMP 36.9; O2SAT 97
--- NOTE | 2021-08-25 08:23 | HMH.ACPN2 ---
<Carina Younger - Last Filed: 08/25/21 08:23> Internal Medicine - PN: Subj *Date: 08/25/21 *Time: 08:23 Interval history: Patient states he feels a little bit better today. He was able to rest all night. He has less facial pain and swelling. He states his ear wick did fall out. Exam Vital signs and Labs for Last 24 Hours: Temp Pulse Resp BP Pulse Ox 97.8 F 67 16 113/65 95 08/25/21 04:00 08/25/21 04:00 08/25/21 04:00 08/25/21 04:00 08/25/21 04:00 Laboratory Results - last 24 hr 08/24/21 10:29: POC Glucose 268 H 08/24/21 16:44: POC Glucose 331 H* 08/24/21 21:11: POC Glucose 194 H 08/25/21 06:05: POC Glucose 243 H I & O for Last 24 hours: Intake & Output 08/22/21 08/23/21 08/24/21 08/25/21 11:59 11:59 11:59 11:59 Intake Total 600 / 600 340 / 340 Balance 600 / 600 340 / 340 Weight 176 lb 7.998 oz 178 lb 4.8 oz - Constitutional no acute distress - *Routine HEENT Exam Head: Present: normocephalic Eye: Present: EOMI, PERRL ENT: Present: mucous membranes moist Comments: Less erythema and edema of the face, patient still has drooping on the left side - *Routine Respiratory Exam Present: CTA bilaterally - *Routine Cardiovascular Exam Present: RRR - *Routine Abdominal Exam Present: soft, normoactive bowel sounds. Absent: tenderness - *Routine Extremities Exam Absent: cyanosis, clubbing, edema - *Routine Skin Exam Present: warm. Absent: rash - *Routine Neurological Exam Present: alert, oriented X3 Assessment and Plan (1) Malignant otitis externa of left ear Status: Acute Category: Medical Code(s): H60.22 - Malignant otitis externa, left ear (2) Facial nerve palsy Status: Acute Category: Medical Code(s): G51.0 - Tejada's palsy (3) Type 2 diabetes mellitus Status: Chronic Category: Medical Code(s): E11.9 - Type 2 diabetes mellitus without complications (4) Hypertension Status: Chronic Category: Medical Code(s): I10 - Essential (primary) hypertension (5) Hyperlipidemia Status: Chronic Category: Medical Code(s): E78.5 - Hyperlipidemia, unspecified (6) ASCVD (arteriosclerotic cardiovascular disease) Status: Chronic Category: Medical Code(s): I25.10 - Atherosclerotic heart disease of [place] coronary artery without angina pectoris (7) Chronic renal insufficiency Status: Chronic Category: Medical Code(s): N18.9 - Chronic kidney disease, unspecified - Assessment and plan all Dx Assessment and Plan for all problems:: Still awaiting ear culture. Will continue antibiotics and steroids. <Gaurang Oshea - Last Filed: 08/25/21 11:05> Internal Medicine - PN: Subj *Date: 08/25/21 *Time: 11:03 Exam Vital signs and Labs for Last 24 Hours: Temp Pulse Resp BP Pulse Ox 98.4 F 95 H 18 132/56 L 97 08/25/21 08:00 08/25/21 08:00 08/25/21 08:00 08/25/21 08:00 08/25/21 08:00 Laboratory Results - last 24 hr 08/24/21 16:44: POC Glucose 331 H* 08/24/21 21:11: POC Glucose 194 H 08/25/21 06:05: POC Glucose 243 H I & O for Last 24 hours: Intake & Output 08/22/21 08/23/21 08/24/21 08/25/21 11:59 11:59 11:59 11:59 Intake Total 600 / 600 820 / 820 Output Total 0 / 0 Balance 600 / 600 820 / 820 Weight 176 lb 7.998 oz 178 lb 4.8 oz Assessment and Plan (1) Malignant otitis externa of left ear Status: Acute Category: Medical Code(s): H60.22 - Malignant otitis externa, left ear (2) Mastoiditis Status: Acute Category: Medical Code(s): H70.90 - Unspecified mastoiditis, unspecified ear (3) Facial nerve palsy Status: Acute Category: Medical Code(s): G51.0 - Tejada's palsy (4) Type 2 diabetes mellitus Status: Chronic Category: Medical Code(s): E11.9 - Type 2 diabetes mellitus without complications (5) Hypertension Status: Chronic Category: Medical Code(s): I10 - Essential (primary) hypertension (6) Hyperlipidemia Status: Chronic Category:
--- NOTE | 2021-08-25 11:18 | SW/DCPLANNER ---
Addendum entered by Latrice Rivera 08/29/21 11:45: This patient is planned to return to [facility] outpatient for PICC care and lab draws on 08/31/21. [facility] Giraldo has stated that she will send their nurse to the home for PICC care and labs draws after 09/05/21. I have called and updated patient: patient agrees with plan. Addendum entered by Latrice Rivera 08/28/21 09:40: Radha w/ [facility] has stated that she is unable to accept to their services due to patient not being homebound. Radha stated that she did teach how to administer IV antibiotics on Saturday morning. I followed up w/ patients this AM and she stated that everything is going well with IV antibiotics at home. I also spoke with Atla from [facility] and she stated that depending on patients insurance plan she may have a nurse that can complete PICC care and lab draws from home rather than patient returning as an outpatient weekly. I will follow up with Alta once information is reviewed. Patient will either be set up w/ Kristal to have PICC care/lab draws at home or return to [facility] for care. Addendum entered by Latrice Rivera 08/25/21 15:18: Alta has stated $213/week for 4-6 is silva for IV medication. Patients family concurs with this plan. Patient will discharge home this evening, medication delivered this evening and [facility] will begin services between 7-8AM tomorrow morning. Patient/ has no further questions at this time. Addendum entered by Latrice Rivera 08/25/21 13:47: Marisel w/ [facility] has stated that services will begin tomorrow morning for first at home teaching of IV antibiotics. I am currently waiting to hear back from [facility] Giraldo. Addendum entered by Latrice Wellman 08/25/21 13:05: Dr Oshea has now recommended that patient discharge on IV antibiotic Q8. I spoke with patients and she is agreeable to discharge home with home health services ([facility]) due to needing antibiotic three times a day. Patient information has been faxed to [facility] Giraldo to confirm out of pocket expense. I will follow up with Alta once patient information/order is reviewed and then fax to [facility] for services to begin day after discharge. Original Note: I spoke with this patient and his regarding plans once medically stable for discharge. 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 I explained different discharge options to patient/: home w/ home health and someone being taught how to administer medication at home vs returning to [facility] outpatient daily for IV antibiotics vs placement. After lengthy discussion with patient/ they have decided to return to [facility] daily for IV antibiotics. I have updated Dr Oshea regarding discharge plans. Discharge date is unknown at this time.
--- NOTE | 2021-08-25 11:35 | XR_ITS ---
PROCEDURE: XR CHEST PORTABLE PICC PLAC CLINICAL HISTORY: Confirm PICC line placement COMPARISON: CR XR CHEST 2V from 01/20/2021 FINDINGS: The cardiomediastinal silhouette and pulmonary vascularity are within normal limits. Left upper extremity PICC line has been inserted. The tip is in the scapular region on the left curling inferiorly at the level of the mid aspect of the clavicle. Lungs are clear. Severe osteoarthritic changes are noted in the shoulders. No acute bony abnormalities. IMPRESSION: Malpositioning of the left upper extremity PICC line. Dictated by: Ramón Riggins MD 08/25/2021 13:58 Ramón Riggins MD in [facility] 08/25/2021 13:58
--- NOTE | 2021-08-25 14:27 | FL_ITS ---
PROCEDURE: FL GUIDED PICC PLACEMENT CLINICAL INDICATION: GUIDED PLACEMENT PICC line assisted placement COMPARISON: No exams were available for comparison FINDINGS: Under fluoroscopic guidance, glidewire was placed through the PICC line and the line was negotiated into the superior vena cava. No immediate complications. The line was then withdrawn and PICC line secured. Fluoroscopy time: 1.25 minutes IMPRESSION: Status post fluoroscopic guided PICC line repositioning with good position. Dictated by: Ramón Riggins MD 08/25/2021 18:14 Ramón Riggins MD in [facility] 08/25/2021 18:14
[2021-08-26 17:21] LABS: POC Glucose,Bedside 213 (70-110)
--- NOTE | 2021-08-27 22:38 | [facility].DCSUM ---
General - General Admission date:: 08/23/21 <Gaurang Oshea - 10/08/21 09:31> 08/23/21 <Carina Younger - 08/27/21 22:43> Discharge date: 08/25/21 <Carina Younger - 08/27/21 22:43> HPI HPI: Mr. Alegria is an 81-year-old male who has had chronic otitis externa of the left ear. He has now seen Dr. Dimas on two different occasions, one on 08/01 and also today. He was following up and had stopped his Ciprodex drops approximately 1 week ago. He felt like his ear was getting worse and he had noticed some swelling on the left side of his face starting this morning. On exam he had auricular tenderness on the left and severe swelling of the left ear canal with debris. His TM appeared normal once the debris was cleaned. A culture was obtained, but Dr. 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 A wick was placed and he wanted the patient admitted to the hospital and started on Ciprodex otic drops along with cefepime pending cultures. He felt steroids would help, but this would need to balance with his diabetes management. He also wanted an MRI of the temporal bone with and without contrast as well as a CT of the temporal bone without contrast. <Carina Younger - 08/27/21 22:43> Hospital Course Hospital Course: The patient was admitted and started on cefepime. He was also started on Ciprodex drops. 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 Adjacent to the mastoid tip there was soft tissue induration in the region of the extracranial left cranial nerve VII as well as left mastoiditis. The patient had a brain MRI which showed no evidence of meningitis or cerebritis but there were findings consistent with left otitis externa and mastoiditis. He did feel better each day on the IV antibiotics. He was able to sleep and had less erythema and edema. He was able to eat. By 08/25/2021 his ear wick had fallen out. He was continued on antibiotics and steroids. Results of the patient's CT and MRI were faxed to Dr. Dimas for further recommendations. The patient had a PICC line placed for continued IV antibiotics. He was agreeable to discharge home with home health services as he was going to need IV antibiotics every 8 hours. He was stable to be discharged home and will follow up with Dr. Oshea and Dr. Dimas. <Carina Younger - 08/27/21 22:43> Objective Vital signs: Temp Pulse Resp BP Pulse Ox 98.4 F 95 H 18 132/56 L 97 08/25/21 08:00 08/25/21 08:00 08/25/21 08:00 08/25/21 08:00 08/25/21 08:00 <DorieGaurang Bean - 10/08/21 09:31> Temp Pulse Resp BP Pulse Ox 98.4 F 95 H 18 132/56 L 97 08/25/21 08:00 08/25/21 08:00 08/25/21 08:00 08/25/21 08:00 08/25/21 08:00 <Carina Younger - 08/27/21 22:43> Narrative: - Constitutional no acute distress - *Routine HEENT Exam Head: Present: normocephalic Eye: Present: EOMI, PERRL ENT: Present: mucous membranes moist Comments: Less erythema and edema of the face, patient still has drooping on the left side - *Routine Respiratory Exam Present: CTA bilaterally - *Routine Cardiovascular Exam Present: RRR - *Routine Abdominal Exam Present: soft, normoactive bowel sounds. Absent: tenderness - *Routine Extremities Exam Absent: cyanosis, clubbing, edema - *Routine Skin Exam Present: warm. Absent: rash - *Routine Neurological Exam Present: alert, oriented X3 <Carina Younger - 08/27/21 22:43> Results Labs on day of discharge: Preliminary micro results at discharge 08/23/21 18:15 Blood Culture - Preliminary Blood NO GROWTH AFTER 48 HOURS 08/23/21 17:27 Blood Culture - Preliminary Blood NO GROWTH AFTER 48 HOURS <Carina Younger - 08/27/21 22:43> DS: Diagnosis - Discharge Diagnosis (1) Malignant otitis externa of left ear Status: Acute (2) Mastoiditis Status: Acute (3) Facial
== END 2021-08-25 18:11 | disposition home health service (06) ==
LOC: 2ND 16:15
PROVIDERS: Nurse Practitioner Family; Admitting Provider Family Medicine; PCP Family Medicine; Visit Provider Family Medicine
DX: H70.002 Acute mastoiditis without complications, left ear (principal); H60.592 Other noninfective acute otitis externa, left ear; G51.0 Bell's palsy; E11.9 Type 2 diabetes mellitus without complications; N18.9 Chronic kidney disease, unspecified; I25.10 Atherosclerotic heart disease of native coronary artery without angina pectoris; I12.9 Hypertensive chronic kidney disease with stage 1 through stage 4 chronic kidney disease, or unspecified chronic kidney disease; Z20.822 Contact with and (suspected) exposure to COVID-19
CPT/HCPCS: 36569; G0378; 70480; 70553; 71045; 77001; 80053; 82962; 85025; 86328; 87040; 87070; A9576; C1751; C1769; C9803; J0692; U0003; U0005

== ENCOUNTER 2021-08-31 09:58 | Outpatient (CLI) | payer MEDICARE, SELFPAY ==
[2021-08-31 10:05] VITALS: BMI 26.1
[2021-08-31 10:41] VITALS: BP 106/58; PULSE 62; RESP 18; TEMP 36.5; O2SAT 98
[2021-08-31 10:46] LABS: Basophils # 0.1 K/mm3 (0-0.2); Basophils % 0.8 % (0.1-2.0); Eosinophils # 0.4 K/mm3 (0.0-0.4); Eosinophils % 3.4 % (0.1-12.0); Hematocrit 42.2 % (42.0-52.0); Hemoglobin 13.3 g/dL (14.1-18.0); Lymphocytes # 2.5 K/mm3 (0.7-4.5); Lymphocytes % 22.9 % (10-50); Mean Corpuscular HGB Conc 31.6 g/dL (31.8-35.4); Mean Corpuscular Volume 97.8 fl (80-94); Monocytes # 0.7 K/mm3 (0.1-1.0); Monocytes % 6.2 % (1.7-9.3); Neutrophils # 7.4 K/mm3 (1.8-7.8); Neutrophils % 66.6 % (37.0-80.0); Platelet Count 310 K/mm3 (142-424); Red Blood Count 4.31 M/mm3 (4.60-6.20); Red Cell Distribution Width 13.3 % (11.5-17.5); White Blood Count 11.1 K/mm3 (4.8-10.8)
[2021-08-31 10:52] LABS: Chloride 100 mmol/L (98-107); Sodium 137 mmol/L (136-145)
[2021-08-31 10:53] LABS: Potassium 4.5 mmoL/L (3.5-5.1)
[2021-08-31 10:56] LABS: Anion Gap 15.5 mEq/L (5-15); Blood Urea Nitrogen 28 mg/dl (9-20); Calcium 9.9 mg/dl (8.4-10.2); Carbon Dioxide 26 mmol/L (22.0-30.0); Creatinine Clearance Estimated 64 mL/min (50-200); Estimated Glomerular Filt Rate 81 ml/min (>60); GFR (African American) 98 ML/MIN (>60); Glucose 168 mg/dl (74-100)
== END 2021-08-31 10:41 | disposition home or self-care (01) ==
LOC: INF 09:59
PROVIDERS: PCP Family Medicine; Visit Provider Family Medicine
DX: H60.22 Malignant otitis externa, left ear (principal)
CPT/HCPCS: 80048; 85025

== ENCOUNTER → 2021-09-05 15:57 | Outpatient (CLI) | payer MEDICARE, SELFPAY | PROVIDERS: Visit Provider Student in an Organized Health Care Education/Training Program | DX: H60.92 Unspecified otitis externa, left ear (principal) | CPT/HCPCS: 87070 ==

== ENCOUNTER → 2021-09-06 09:02 | Outpatient (CLI) | payer MEDICARE, SELFPAY ==
[2021-09-06 09:46] LABS: Hemoglobin A1C 9.1 % (4.0-6.0)
[2021-09-06 11:05] LABS: Alanine Aminotransferase 26 U/L (12-78); Albumin Level 4.2 g/dl (3.5-5.0); Albumin/Globulin Ratio 1.7 (1.1-1.8); Alkaline Phosphatase 104 U/L (38-126); Aspartate Amino Transferase 28 U/L (17-59); Bilirubin,Total 0.3 mg/dl (0.2-1.3); Blood Urea Nitrogen 22 mg/dl (9-20); Carbon Dioxide 26 mmol/L (22.0-30.0); Chloride 102 mmol/L (98-107); Chol/HDL Ratio 4.1 (1-3.5); Cholesterol 184 mg/dl (140-200); Estimated Glomerular Filt Rate 71 ml/min (>60); GFR (African American) 86 ML/MIN (>60); Globulin 2.5 g/dL (1.3-3.2); Glucose 150 mg/dl (74-100); HDL Cholesterol 45 mg/dl (40-60); Sodium 136 mmol/L (136-145); Total Protein,Serum 6.7 g/dl (6.3-8.2); Triglycerides 216 mg/dl (30-150); VLDL Cholesterol 43 mg/dL (0-40)
[2021-09-06 11:16] LABS: Direct LDL Cholesterol 106.52 mg/dL (100-129)
== END ==
PROVIDERS: Visit Provider Family Medicine
DX: E11.9 Type 2 diabetes mellitus without complications (principal); I10 Essential (primary) hypertension; E78.5 Hyperlipidemia, unspecified; Z79.84 Long term (current) use of oral hypoglycemic drugs
CPT/HCPCS: 36415; 80053; 80061; 83036

== ENCOUNTER 2021-09-20 12:51 | Outpatient (CLI) | payer MEDICARE, SELFPAY | END 2021-09-20 13:11 | disposition home or self-care (01) | LOC: INF 12:53 | PROVIDERS: PCP Family Medicine; Visit Provider Family Medicine | DX: Z45.2 Encounter for adjustment and management of vascular access device (principal) | CPT/HCPCS: 96523 ==

== ENCOUNTER 2021-09-27 16:18 | Outpatient (CLI) | payer MEDICARE, SELFPAY | END 2021-09-27 16:38 | disposition home or self-care (01) | LOC: INF 16:20 | PROVIDERS: PCP Family Medicine; Visit Provider Student in an Organized Health Care Education/Training Program | DX: Z45.2 Encounter for adjustment and management of vascular access device (principal) | CPT/HCPCS: 96523 ==

== ENCOUNTER 2021-10-04 10:45 | Outpatient (CLI) | payer MEDICARE, SELFPAY | END 2021-10-04 11:05 | disposition home or self-care (01) | LOC: INF 10:47 | PROVIDERS: PCP Family Medicine | DX: Z45.2 Encounter for adjustment and management of vascular access device (principal) | CPT/HCPCS: 96523 ==

== ENCOUNTER 2021-10-10 10:22 | Outpatient (CLI) | payer MEDICARE, SELFPAY | END 2021-10-10 10:45 | disposition home or self-care (01) | LOC: INF 10:24 | PROVIDERS: PCP Family Medicine; Visit Provider Family Medicine | DX: Z45.2 Encounter for adjustment and management of vascular access device (principal) | CPT/HCPCS: 96523 ==

== ENCOUNTER 2021-10-17 09:47 | Outpatient (CLI) | payer MEDICARE, SELFPAY ==
[2021-10-17 10:01] VITALS: BMI 28.3
[2021-10-17 10:25] LABS: Basophils # 0.1 K/mm3 (0-0.2); Basophils % 1.3 % (0.1-2.0); Eosinophils # 1.8 K/mm3 (0.0-0.4); Eosinophils % 19.4 % (0.1-12.0); Hematocrit 42.4 % (42.0-52.0); Hemoglobin 13.3 g/dL (14.1-18.0); Lymphocytes # 2.3 K/mm3 (0.7-4.5); Lymphocytes % 25.5 % (10-50); Mean Corpuscular HGB Conc 31.3 g/dL (31.8-35.4); Mean Corpuscular Hemoglobin 31.3 pg (27.0-31.2); Mean Corpuscular Volume 99.8 fl (80-94); Mean Platelet Volume 8.4 fl (7.4-10.4); Monocytes # 0.7 K/mm3 (0.1-1.0); Monocytes % 7.7 % (1.7-9.3); Neutrophils # 4.2 K/mm3 (1.8-7.8); Neutrophils % 46.1 % (37.0-80.0); Platelet Count 180 K/mm3 (142-424); Red Blood Count 4.25 M/mm3 (4.60-6.20); Red Cell Distribution Width 14.8 % (11.5-17.5); White Blood Count 9.1 K/mm3 (4.8-10.8)
[2021-10-17 10:35] LABS: Chloride 103 mmol/L (98-107); Potassium 4.4 mmoL/L (3.5-5.1); Sodium 135 mmol/L (136-145)
[2021-10-17 10:37] LABS: Alanine Aminotransferase 27 U/L (12-78); Aspartate Amino Transferase 36 U/L (17-59); Blood Urea Nitrogen 15 mg/dl (9-20); Creatinine Clearance Estimated 69 mL/min (50-200); Estimated Glomerular Filt Rate 81 ml/min (>60); GFR (African American) 98 ML/MIN (>60)
[2021-10-17 10:38] LABS: Albumin/Globulin Ratio 1.7 (1.1-1.8); Alkaline Phosphatase 103 U/L (38-126); Anion Gap 11.4 mEq/L (5-15); Bilirubin,Total 0.6 mg/dl (0.2-1.3); Calcium 9.2 mg/dl (8.4-10.2); Carbon Dioxide 25 mmol/L (22.0-30.0); Globulin 2.3 g/dL (1.3-3.2); Glucose 156 mg/dl (74-100); Total Protein,Serum 6.3 g/dl (6.3-8.2)
[2021-10-17 10:44] LABS: C-Reactive Protein 1.9 mg/L (0-4)
== END 2021-10-17 10:17 | disposition home or self-care (01) ==
LOC: INF 09:50
PROVIDERS: PCP Family Medicine; Visit Provider Family Medicine
DX: H60.22 Malignant otitis externa, left ear (principal)
CPT/HCPCS: 80053; 85025; 86140

== ENCOUNTER 2021-10-25 11:01 | Outpatient (CLI) | payer MEDICARE, SELFPAY ==
[2021-10-25 11:08] VITALS: BMI 28.2
[2021-10-25 11:46] LABS: Basophils # 0.1 K/mm3 (0-0.2); Basophils % 0.7 % (0.1-2.0); Eosinophils # 0.7 K/mm3 (0.0-0.4); Eosinophils % 8.3 % (0.1-12.0); Hematocrit 41.7 % (42.0-52.0); Hemoglobin 13.5 g/dL (14.1-18.0); Lymphocytes # 2.5 K/mm3 (0.7-4.5); Lymphocytes % 30.5 % (10-50); Mean Corpuscular HGB Conc 32.5 g/dL (31.8-35.4); Mean Corpuscular Hemoglobin 30.6 pg (27.0-31.2); Mean Corpuscular Volume 94.2 fl (80-94); Monocytes # 0.7 K/mm3 (0.1-1.0); Monocytes % 8.9 % (1.7-9.3); Neutrophils # 4.3 K/mm3 (1.8-7.8); Neutrophils % 51.6 % (37.0-80.0); Platelet Count 192 K/mm3 (142-424); Red Blood Count 4.43 M/mm3 (4.60-6.20); Red Cell Distribution Width 14.1 % (11.5-17.5); White Blood Count 8.3 K/mm3 (4.8-10.8)
[2021-10-25 11:50] LABS: Chloride 102 mmol/L (98-107); Sodium 133 mmol/L (136-145)
[2021-10-25 11:51] LABS: Potassium 4.5 mmoL/L (3.5-5.1)
[2021-10-25 11:53] LABS: Alanine Aminotransferase 32 U/L (12-78); Albumin Level 4.3 g/dl (3.5-5.0); Albumin/Globulin Ratio 1.7 (1.1-1.8); Alkaline Phosphatase 106 U/L (38-126); Anion Gap 12.5 mEq/L (5-15); Aspartate Amino Transferase 37 U/L (17-59); Bilirubin,Total 0.6 mg/dl (0.2-1.3); Blood Urea Nitrogen 14 mg/dl (9-20); Calcium 9.8 mg/dl (8.4-10.2); Carbon Dioxide 23 mmol/L (22.0-30.0); Creatinine Clearance Estimated 69 mL/min (50-200); Estimated Glomerular Filt Rate 81 ml/min (>60); GFR (African American) 98 ML/MIN (>60); Globulin 2.5 g/dL (1.3-3.2); Glucose 169 mg/dl (74-100); Total Protein,Serum 6.8 g/dl (6.3-8.2)
[2021-10-25 11:59] LABS: C-Reactive Protein 1.6 mg/L (0-4)
== END 2021-10-25 11:15 | disposition home or self-care (01) ==
LOC: INF 11:02
PROVIDERS: PCP Family Medicine; Visit Provider Internal Medicine Infectious Disease
DX: H60.22 Malignant otitis externa, left ear (principal)
CPT/HCPCS: 80053; 85025; 86140

== ENCOUNTER → 2021-11-01 08:09 | Outpatient (CLI) | payer MEDICARE, SELFPAY | PROVIDERS: PCP Family Medicine; Visit Provider Family Medicine | DX: Z45.2 Encounter for adjustment and management of vascular access device (principal) ==

== ENCOUNTER → 2022-03-06 08:33 | Outpatient (CLI) | payer MEDICARE, SELFPAY ==
[2022-03-06 09:27] LABS: Hemoglobin A1C 7.4 % (4.0-6.0)
[2022-03-06 10:04] LABS: Alanine Aminotransferase 18 U/L (12-78); Albumin Level 4.3 g/dl (3.5-5.0); Albumin/Globulin Ratio 1.9 (1.1-1.8); Alkaline Phosphatase 82 U/L (38-126); Anion Gap 13.6 mEq/L (5-15); Aspartate Amino Transferase 24 U/L (17-59); Bilirubin,Total 0.4 mg/dl (0.2-1.3); Blood Urea Nitrogen 21 mg/dl (9-20); Calcium 9.8 mg/dl (8.4-10.2); Carbon Dioxide 23 mmol/L (22.0-30.0); Chloride 104 mmol/L (98-107); Chol/HDL Ratio 4.7 (1-3.5); Cholesterol 149 mg/dl (140-200); Estimated Glomerular Filt Rate 64 ml/min (>60); GFR (African American) 77 ML/MIN (>60); Globulin 2.3 g/dL (1.3-3.2); Glucose 169 mg/dl (74-100); HDL Cholesterol 32 mg/dl (40-60); Potassium 4.6 mmoL/L (3.5-5.1); Sodium 136 mmol/L (136-145); Total Protein,Serum 6.6 g/dl (6.3-8.2); Triglycerides 165 mg/dl (30-150); VLDL Cholesterol 33 mg/dL (0-40)
[2022-03-06 10:15] LABS: Direct LDL Cholesterol 79.64 mg/dL (100-129)
== END ==
PROVIDERS: PCP Family Medicine; Visit Provider Family Medicine
DX: E11.9 Type 2 diabetes mellitus without complications (principal); E78.5 Hyperlipidemia, unspecified; I10 Essential (primary) hypertension; Z79.84 Long term (current) use of oral hypoglycemic drugs
CPT/HCPCS: 36415; 80053; 80061; 83036

== ENCOUNTER → 2022-08-24 08:43 | Outpatient (CLI) | payer MEDICARE, SELFPAY ==
[2022-08-24 09:18] LABS: Hemoglobin A1C 7.9 % (4.0-6.0)
[2022-08-24 09:30] LABS: Alanine Aminotransferase 23 U/L (12-78); Albumin Level 4.7 g/dl (3.5-5.0); Alkaline Phosphatase 124 U/L (38-126); Anion Gap 14.7 mEq/L (5-15); Aspartate Amino Transferase 28 U/L (17-59); Bilirubin,Total 0.5 mg/dl (0.2-1.3); Blood Urea Nitrogen 18 mg/dl (9-20); Calcium 10.3 mg/dl (8.4-10.2); Carbon Dioxide 26 mmol/L (22.0-30.0); Chloride 103 mmol/L (98-107); Chol/HDL Ratio 4.3 (1-3.5); Cholesterol 158 mg/dl (140-200); Estimated Glomerular Filt Rate 64 ml/min (>60); GFR (African American) 77 ML/MIN (>60); Globulin 2.3 g/dL (1.3-3.2); Glucose 159 mg/dl (74-100); HDL Cholesterol 37 mg/dl (40-60); Potassium 4.7 mmoL/L (3.5-5.1); Sodium 139 mmol/L (136-145); Triglycerides 167 mg/dl (30-150); VLDL Cholesterol 33 mg/dL (0-40)
[2022-08-24 09:41] LABS: Direct LDL Cholesterol 84.89 mg/dL (100-129)
== END ==
PROVIDERS: PCP Family Medicine; Visit Provider Family Medicine
DX: E11.9 Type 2 diabetes mellitus without complications (principal); E78.5 Hyperlipidemia, unspecified; I10 Essential (primary) hypertension; Z79.84 Long term (current) use of oral hypoglycemic drugs
CPT/HCPCS: 36415; 80053; 80061; 83036

== ENCOUNTER → 2023-03-16 08:01 | Outpatient (CLI) | payer MEDICARE, SELFPAY ==
[2023-03-16 09:21] LABS: Alanine Aminotransferase 23 U/L (12-78); Albumin Level 4.4 g/dl (3.5-5.0); Alkaline Phosphatase 88 U/L (38-126); Anion Gap 15.5 mEq/L (5-15); Aspartate Amino Transferase 28 U/L (17-59); Bilirubin,Total 0.3 mg/dl (0.2-1.3); Blood Urea Nitrogen 22 mg/dl (9-20); Calcium 9.4 mg/dl (8.4-10.2); Carbon Dioxide 22 mmol/L (22.0-30.0); Chloride 106 mmol/L (98-107); Chol/HDL Ratio 4.2 (1-3.5); Cholesterol 173 mg/dl (140-200); Estimated Glomerular Filt Rate 71 ml/min (>60); GFR (African American) 86 ML/MIN (>60); Globulin 2.2 g/dL (1.3-3.2); Glucose 105 mg/dl (74-100); HDL Cholesterol 41 mg/dl (40-60); Potassium 4.5 mmoL/L (3.5-5.1); Sodium 139 mmol/L (136-145); Total Protein,Serum 6.6 g/dl (6.3-8.2); Triglycerides 173 mg/dl (30-150); VLDL Cholesterol 35 mg/dL (0-40)
[2023-03-16 09:32] LABS: Direct LDL Cholesterol 94.57 mg/dL (100-129)
[2023-03-16 12:08] LABS: Hemoglobin A1C 6.8 % (4.0-6.0)
== END ==
PROVIDERS: PCP Family Medicine; Visit Provider Physician Assistant
DX: E11.9 Type 2 diabetes mellitus without complications (principal); E78.5 Hyperlipidemia, unspecified; Z79.84 Long term (current) use of oral hypoglycemic drugs; I10 Essential (primary) hypertension
CPT/HCPCS: 36415; 80053; 80061; 82043; 83036

== ENCOUNTER 2023-09-13 09:22 | Outpatient (CLI) | payer MEDICARE, SELFPAY ==
[2023-09-13 09:57] LABS: Chloride 106 mmol/L (98-107); Potassium 4.7 mmoL/L (3.5-5.1); Sodium 140 mmol/L (136-145)
[2023-09-13 09:59] LABS: Alanine Aminotransferase 29 U/L (12-78); Alkaline Phosphatase 81 U/L (38-126); Aspartate Amino Transferase 31 U/L (17-59); Bilirubin,Total 0.6 mg/dl (0.2-1.3); Blood Urea Nitrogen 19 mg/dl (9-20); Estimated Glomerular Filt Rate 71 ml/min (>60); GFR (African American) 86 ML/MIN (>60)
[2023-09-13 10:00] LABS: Albumin Level 4.4 g/dl (3.5-5.0); Albumin/Globulin Ratio 1.9 (1.1-1.8); Anion Gap 13.7 mEq/L (5-15); Calcium 9.6 mg/dl (8.4-10.2); Carbon Dioxide 25 mmol/L (22.0-30.0); Chol/HDL Ratio 5.3 (1-3.5); Cholesterol 203 mg/dl (140-200); Globulin 2.3 g/dL (1.3-3.2); Glucose 127 mg/dl (74-100); HDL Cholesterol 38 mg/dl (40-60); Total Protein,Serum 6.7 g/dl (6.3-8.2); Triglycerides 157 mg/dl (30-150); VLDL Cholesterol 31 mg/dL (0-40)
[2023-09-13 10:11] LABS: Direct LDL Cholesterol 119.59 mg/dL (100-129)
[2023-09-13 10:26] LABS: Hemoglobin A1C 7.3 % (4.0-6.0)
== END 2023-09-13 23:59 ==
LOC: LAB 09:22
PROVIDERS: PCP Family Medicine; Visit Provider Family Medicine
DX: E11.9 Type 2 diabetes mellitus without complications (principal); I10 Essential (primary) hypertension; E78.5 Hyperlipidemia, unspecified; Z79.84 Long term (current) use of oral hypoglycemic drugs
CPT/HCPCS: 36415; 80053; 80061; 83036

== ENCOUNTER 2024-03-13 08:31 | Outpatient (CLI) | payer MEDICARE, SELFPAY ==
[2024-03-13 09:36] LABS: Basophils % 0.5 % (0.1-2.0); Eosinophils # 0.4 K/mm3 (0.0-0.4); Eosinophils % 6.5 % (0.1-12.0); Hematocrit 42.1 % (42.0-52.0); Hemoglobin 13.9 g/dL (14.1-18.0); Lymphocytes # 2.2 K/mm3 (0.7-4.5); Lymphocytes % 40.3 % (10-50); Mean Corpuscular HGB Conc 33.1 g/dL (31.8-35.4); Mean Corpuscular Hemoglobin 33.1 pg (27.0-31.2); Mean Corpuscular Volume 99.9 fl (80-94); Mean Platelet Volume 8.2 fl (7.4-10.4); Monocytes # 0.4 K/mm3 (0.1-1.0); Monocytes % 7.3 % (1.7-9.3); Neutrophils # 2.5 K/mm3 (1.8-7.8); Neutrophils % 45.3 % (37.0-80.0); Platelet Count 211 K/mm3 (142-424); Red Blood Count 4.22 M/mm3 (4.60-6.20); Red Cell Distribution Width 13.8 % (11.5-17.5); White Blood Count 5.4 K/mm3 (4.8-10.8)
[2024-03-13 10:23] LABS: Hemoglobin A1C 8.5 % (4.0-6.0)
[2024-03-13 10:25] LABS: Chloride 109 mmol/L (98-107); Potassium 4.4 mmoL/L (3.5-5.1); Sodium 140 mmol/L (136-145)
[2024-03-13 10:27] LABS: Alanine Aminotransferase 20 U/L (12-78); Alkaline Phosphatase 84 U/L (38-126); Aspartate Amino Transferase 26 U/L (17-59); Bilirubin,Total 0.5 mg/dl (0.2-1.3); Blood Urea Nitrogen 16 mg/dl (9-20); Estimated Glomerular Filt Rate 63 ml/min (>60); GFR (African American) 77 ML/MIN (>60)
[2024-03-13 10:28] LABS: Albumin Level 4.2 g/dl (3.5-5.0); Albumin/Globulin Ratio 1.8 (1.1-1.8); Anion Gap 12.4 mEq/L (5-15); Carbon Dioxide 23 mmol/L (22.0-30.0); Cholesterol 172 mg/dl (140-200); Globulin 2.4 g/dL (1.3-3.2); Glucose 103 mg/dl (74-100); Total Protein,Serum 6.6 g/dl (6.3-8.2); Triglycerides 141 mg/dl (30-150); VLDL Cholesterol 28 mg/dL (0-40)
[2024-03-13 10:29] LABS: Chol/HDL Ratio 4.5 (1-3.5); HDL Cholesterol 38 mg/dl (40-60)
[2024-03-13 10:59] LABS: Creatinine,Urine Random 98 mg/dL (Not Estab.)
== END 2024-03-13 23:59 | disposition home or self-care (01) ==
PROVIDERS: PCP Family Medicine; Visit Provider Family Medicine
DX: E78.5 Hyperlipidemia, unspecified (principal); E11.9 Type 2 diabetes mellitus without complications; Z79.84 Long term (current) use of oral hypoglycemic drugs; I10 Essential (primary) hypertension
CPT/HCPCS: 36415; 80053; 80061; 82043; 82570; 83036; 85025

== ENCOUNTER 2024-03-17 09:36 | Outpatient (CLI) | payer MEDICARE, SELFPAY ==
--- NOTE | 2024-03-17 09:40 | XR_ITS ---
FINAL REPORT CLINICAL HISTORY: HIP PAIN COMPARISON: None FINDINGS: RIGHT HIP Two views of the right hip demonstrate no acute fracture or dislocation. Severe degenerative changes present in the right hip. There are multiple subchondral cysts present. Mild degenerative change is noted in the left hip. The visualized bony structures are well aligned. No soft tissue abnormality is seen. IMPRESSION: Severe degenerative change in the right hip with multiple subchondral cysts as described. Reviewed, Interpreted and Dictated by Abel Polanco III, MD Transcribed by Avril Andersen Authenticated and [facility]
--- NOTE | 2024-03-17 09:40 | XR_ITS ---
FINAL REPORT CLINICAL HISTORY: BACK PAIN COMPARISON: None FINDINGS: 6 views of the lumbar spine were obtained. There is no evidence of fracture or dislocation. The vertebral alignment is normal. Severe degenerative changes are present in the lumbar spine, with multilevel bulky osteophytes consistent with DISH. Mild vascular calcifications are present. IMPRESSION: Severe degenerative change in the lumbar spine, with multilevel bulky osteophytes, consistent with DISH. Reviewed, Interpreted and Dictated by Abel Polanco III, MD Transcribed by Avril Andersen Authenticated and [facility]
== END 2024-03-17 23:59 | disposition home or self-care (01) ==
LOC: RAD 09:37
PROVIDERS: PCP Family Medicine; Visit Provider Family Medicine
DX: M54.30 Sciatica, unspecified side (principal)
CPT/HCPCS: 72110; 73502

== ENCOUNTER 2024-07-06 14:58 | Outpatient (CLI) | payer MEDICARE, SELFPAY ==
--- NOTE | 2024-07-06 15:04 | XR_ITS ---
PROCEDURE INFORMATION: Exam: XR Left Knee Exam date and time: 07/06/2024 3:06 PM Age: 84 years old Clinical indication: Pain; Knee; Left TECHNIQUE: Imaging protocol: Radiologic exam of the left knee. Views: 3 views. COMPARISON: No relevant prior studies available. FINDINGS: Bones/joints: No acute fracture or dislocation. Advanced tricompartmental osteoarthrosis. Bridging osteophyte developing along the medial aspect of the knee suggesting possible chronic soft tissue injury. Soft tissues: Unremarkable. Other findings: Meniscal calcifications. IMPRESSION: 1. No acute fracture or dislocation. 2. Advanced tricompartmental osteoarthrosis.
--- NOTE | 2024-07-06 15:04 | XR_ITS ---
PROCEDURE INFORMATION: Exam: XR Right Knee Exam date and time: 07/06/2024 3:06 PM Age: 84 years old Clinical indication: Pain; Knee; Right TECHNIQUE: Imaging protocol: Radiologic exam of the right knee. Views: 3 views. COMPARISON: No relevant prior studies available. FINDINGS: Bones/joints: Moderate tricompartmental osteoarthrosis. Superior patellar enthesophyte. No acute fracture or dislocation. Soft tissues: Normal. Vasculature: Vascular calcifications. Other findings: Meniscal calcifications. IMPRESSION: No acute fracture or dislocation.
== END 2024-07-06 23:59 | disposition home or self-care (01) ==
LOC: RAD 15:00
PROVIDERS: PCP Nurse Practitioner Women's Health; Visit Provider Family Medicine
DX: M25.561 Pain in right knee (principal); M25.562 Pain in left knee
CPT/HCPCS: 73562

== ENCOUNTER 2024-09-17 09:15 | Outpatient (CLI) | payer MEDICARE, SELFPAY ==
[2024-09-17 10:02] LABS: Hemoglobin A1C 6.8 % (4.0-6.0)
[2024-09-17 10:13] LABS: Albumin Level 4.6 g/dl (3.5-5.0); Chloride 102 mmol/L (98-107); Sodium 139 mmol/L (136-145)
[2024-09-17 10:14] LABS: Potassium 4.3 mmoL/L (3.5-5.1)
[2024-09-17 10:16] LABS: Alanine Aminotransferase 32 U/L (12-78); Albumin/Globulin Ratio 2.2 (1.1-1.8); Anion Gap 16.3 mEq/L (5-15); Aspartate Amino Transferase 36 U/L (17-59); Blood Urea Nitrogen 16 mg/dl (9-20); Carbon Dioxide 25 mmol/L (22.0-30.0); Estimated Glomerular Filt Rate 80 ml/min (>60); GFR (African American) 97 ML/MIN (>60); Globulin 2.1 g/dL (1.3-3.2); Total Protein,Serum 6.7 g/dl (6.3-8.2)
[2024-09-17 10:17] LABS: Alkaline Phosphatase 109 U/L (38-126); Bilirubin,Total 0.7 mg/dl (0.2-1.3); Calcium 9.8 mg/dl (8.4-10.2); Chol/HDL Ratio 3.9 (1-3.5); Cholesterol 164 mg/dl (140-200); Glucose 188 mg/dl (74-100); HDL Cholesterol 42 mg/dl (40-60); Triglycerides 100 mg/dl (30-150); VLDL Cholesterol 20 mg/dL (0-40)
[2024-09-17 10:27] LABS: Direct LDL Cholesterol 101.69 mg/dL (100-129)
== END 2024-09-17 23:59 | disposition home or self-care (01) ==
LOC: LAB 09:17
PROVIDERS: Family Medicine; PCP Family Medicine; Visit Provider Family Medicine
DX: E78.5 Hyperlipidemia, unspecified (principal); I10 Essential (primary) hypertension; E11.9 Type 2 diabetes mellitus without complications
CPT/HCPCS: 36415; 80053; 80061; 83036